=== PATIENT | male | born 1960 | race Caucasian/White ===

== ENCOUNTER → 2024-10-24 08:12 | Outpatient (REF) | payer BC, SELFPAY | LOC: MRI 08:12 | PROVIDERS: ATTENDING PHYSICIAN Family Medicine; FAMILY PHYSICIAN Family Medicine | DX: S62.002A Unspecified fracture of navicular [scaphoid] bone of left wrist, initial encounter for closed fracture (principal) | CPT/HCPCS: 73221 ==

== ENCOUNTER → 2025-03-16 10:49 | Outpatient (REF) | payer BC, SELFPAY | LOC: RCS 10:49 | PROVIDERS: ATTENDING PHYSICIAN Orthopaedic Surgery; FAMILY PHYSICIAN Family Medicine | DX: Z01.818 Encounter for other preprocedural examination (principal) | CPT/HCPCS: 93005 ==

== ENCOUNTER → 2025-07-02 08:31 | Outpatient (REF) | payer BC, SELFPAY | LOC: RAD 08:31 | PROVIDERS: ATTENDING PHYSICIAN Family Medicine | DX: J18.9 Pneumonia, unspecified organism (principal) | CPT/HCPCS: 71046 ==

== ENCOUNTER 2025-11-10 13:28 | Emergency (ER) | payer BC, SELFPAY ==
[2025-11-10 13:42] VITALS: BP 150/92
--- NOTE | 2025-11-10 15:41 | ED.GENMED ---
History of Present Illness
General
Chief Complaint: Head Injury
Source: patient and spouse
Exam Limitations: none
Time Seen by Provider: 11/10/25 15:18
History of Present Illness
History of Present Illness:
65yoM with history of hypertension and hyperlipidemia presenting with his for evaluation after head injury about 2 hours ago. Patient was walking his dog outside when he slipped on ice. He fell backwards onto his buttock and struck the back
of his head on the ground. There was no loss of consciousness. He was able to get up after the fall. He felt a little dazed initially. He currently complains of a mild headache. No vomiting, neck pain, back pain, shortness of breath. He does
not take any blood thinners. No history of head injuries or concussions.
Past History
Past History
ED Past Medical History: None
ED Past Surgical History: None
Social History
Tobacco: Non-smoker
Alcohol: None
Drug: None
Living: with family
Phy Exam
General Physical Exam
General Presentation: well appearing and no apparent distress
General age: appears stated age
General Skin: warm and dry
General Habitus: normal
General Mental: alert
ENT Exam
ENT Exam: other (+Hematoma noted to posterior midline scalp. No cervical spine tenderness with full ROM.)
Eye Exam
Eye Exam: PERRL and conjunctiva normal
Pulmonary Exam
Pulmonary Exam: lungs clear, no respiratory distress, no rales, no crackles, no rhonchi, no stridor and no wheezing
Neurological Exam
Neurological Exam: alert, no motor deficits, speech normal and other (Ambulating with steady gait)
[place] Coma Scale
Eye Opening: Spontaneous
Verbal Response: Oriented
Motor Response: Obeys Commands
GCS Total Score: 15
Skin Exam
Skin Exam: normal color and warm/dry
Psychiatric Exam
Psychiatric Exam: normal mood/affect
Course
Orders/Labs/Results
Orders:
Orders
11/10/25 13:[address] [CT Head W/o Iv Contrast] Urgent
Comment:
Reason For Exam: head trauma
Vital Signs
Initial and Last Documented VS:
Initial Vital Signs
Temp Pulse Resp BP Pulse Ox
98.2 F 89 18 150/92 99
11/10/25 13:42 11/10/25 13:42 11/10/25 13:42 11/10/25 13:42 11/10/25 13:42
Last Documented Vital Signs
Temp Pulse Resp BP Pulse Ox
98.2 F 89 18 150/92 99
11/10/25 13:42 11/10/25 13:42 11/10/25 13:42 11/10/25 13:42 11/10/25 15:43
MDM/Problems Addressed
Differential Diagnosis Includes:
65yoM here with head injury after a slip on ice. No LOC. No blood thinners. C/o mild headache. He is awake, alert, with a GCS of 15. He is ambulating with a steady gait. Scalp hematoma noted on exam. Cervical spine cleared via NEXUS criteria.
Differential diagnosis includes: closed head injury, concussion, intracranial hemorrhage, skull fracture
CT head obtained in triage which is negative for bleed/fracture. Patient stable for discharge. Supportive care discussed. Advised f/u with PCP with any persistent symptoms and ED return precautions reviewed.
*Pulse Oximetry
SaO2: 99
Patient hypoxic: no
*Critical Care Note
Total Time (30-74mins, 75-104mins- exclusive of procedures): Not Applicable
ED Attending Note
-
Portions of this chart may have been created with voice recognition software.� Occasional wrong word or��sound alike� substitutions may have occurred due to the inherent limitations of voice recognition software.
Discharge Plan
Departure
Patient Disposition: Home (Routine Discharge)
Date of Disposition: 11/10/25
Time of Disposition: 15:46
Patient with high blood pressure during this ER visit?: Yes
Discharge Problem:
Fall from slipping on ice, Closed head injury, Hematoma of scalp
Instructions: Head Injury in Adults (DC)
Referrals:
Ben Dye MD [Family Provider, [facility]]
Activity Restrictions/Additional Instructions:
CT scan was negative for bleeding and skull fractures.
Apply ice to help with swelling. Take Tylenol as needed for headaches.
Please follow-up with your family doctor with any persistent symptoms. Return to the ER with any worsening symptoms including confusion.
Discharge Date and Time
Print Language: PASHTO
== END 2025-11-10 16:30 | disposition home or self-care (01) ==
LOC: EMR 13:28
PROVIDERS: EMERGENCY PHYSICIAN Emergency Medicine; FAMILY PHYSICIAN Family Medicine
DX: S00.03XA Contusion of scalp, initial encounter (principal); W00.0XXA Fall on same level due to ice and snow, initial encounter; Y93.K1 Activity, walking an animal; I10 Essential (primary) hypertension; E78.5 Hyperlipidemia, unspecified
CPT/HCPCS: 99284; 70450